=== PATIENT | female | born 1975 | race American Indian/Alaskan Native ===

== ENCOUNTER 2016-05-29 19:13 | Emergency (ER) | payer MEDICAID ==
[2016-05-29 19:28] VITALS: BMI 60.5
--- NOTE | 2016-05-29 19:29 | ED PDOC ---
Arrival/HPI - General Time Seen by Provider: 05/29/16 19:24 Historian: Patient - History of Present Illness Narrative History of Present Illness (Text): 05/29/16 19:38 40yo female in ED for left foot pain. states she missed a step and twisted her foot 6hours ago. States she ambulates with pain. Took 800mg of Ibuprofen 4hrs ago, with some relieve. denies any other complaint. Past Medical History - Provider Review Nursing Documentation Reviewed: Yes - Infectious Disease Hx of Infectious Diseases: None - Tetanus Immunization Tetanus Immunization: Unknown - Psychiatric Hx Depression: No Hx Emotional Abuse: No Hx Physical Abuse: No Hx Substance Use: No - Anesthesia Hx Anesthesia: No Hx Anesthesia Reactions: No Hx Malignant Hyperthermia: No - Suicidal Assessment Feels Threatened In Home Enviroment: No Family/Social History - Physician Review Nursing Documentation Reviewed: Yes Family/Social History: Unknown Family HX Smoking Status: Never Smoked Hx Alcohol Use: No Hx Substance Use: No Hx Substance Use Treatment: No Allergies/Home Meds Allergies/Adverse Reactions: Allergies No Known Allergies Allergy (Verified 02/13/13 14:05) Review of Systems - Physician Review All systems were reviewed & negative as marked: Yes - Review of Systems Constitutional: Normal Eyes: Normal ENT: Normal Respiratory: Normal Cardiovascular: Normal Gastrointestinal: Normal Genitourinary Female: Normal Musculoskeletal: Arthralgias (Left foot) Skin: Normal Neurological: Normal Endocrine: Normal Hemo/Lymphatic: Normal Psychiatric: Normal Physical Exam Vital Signs Reviewed: Yes Vital Signs Temp Pulse Resp BP Pulse Ox 05/29/16 19:13 98.6 F 78 18 132/68 98 Temperature: Afebrile Blood Pressure: Normal Pulse: Regular Respiratory Rate: Normal Appearance: Positive for: Well-Appearing, Non-Toxic, Comfortable Pain Distress: None Mental Status: Positive for: Alert and Oriented X 3 - Systems Exam Head: Present: Atraumatic, Normocephalic Pupils: Present: PERRL Extroacular Muscles: Present: EOMI Conjunctiva: Present: Normal Mouth: Present: Moist Mucous Membranes Neck: Present: Normal Range of Motion Respiratory/Chest: Present: Clear to Auscultation, Good Air Exchange. No: Respiratory Distress, Accessory Muscle Use Cardiovascular: Present: Regular Rate and Rhythm, Normal S1, S2. No: Murmurs Abdomen: Present: Normal Bowel Sounds. No: Tenderness, Distention, Peritoneal Signs Back: Present: Normal Inspection Upper Extremity: Present: Normal Inspection. No: Cyanosis, Edema Lower Extremity: Present: NORMAL PULSES, Normal ROM, Tenderness (Over left lateral foot), Swelling (Left lateral foot), Neurovascularly Intact. No: Edema , CALF TENDERNESS, Cyanosis, Erythema, Deformity, Temperature Abnormalties Neurological: Present: GCS=15, CN II-XII Intact, Speech Normal Skin: Present: Warm, Dry, Normal Color. No: Rashes Psychiatric: Present: Alert, Oriented x 3, Normal Insight, Normal Concentration Medical Decision Making ED Course and Treatment: 05/29/16 20:19 Left foot xray - No acute fracture\ Hermelindo wrap applied. Ortho shoe given. crutches given Advised to RICE foot Referred to a [facility]ist TRT ED for any new or worsening symptoms - RAD Interpretation Radiology Orders: 05/29/16 19:28 FOOT LEFT 3 VIEWS ROUTINE [RAD] Stat Disposition/Present on Arrival - Present on Arrival Any Indicators Present on Arrival: No History of DVT/PE: No History of Uncontrolled Diabetes: No Urinary Catheter: No History Surgical Site Infection Following: None - Disposition Have Diagnosis and Disposition been Completed?: Yes Diagnosis: Foot sprain Disposition: HOME/ ROUTINE Disposition Time: 20:20 Patient Plan: Discharge Patient Problems: Current Active Problems Problem Status Diagnosed Foot sprain Acute Condition: STABLE Discharge Instructions (ExitCare): Foot Sprain (ED) Additional Instructions: Rest, ice, compress and elevate foot Follow up with a [facility] Specialist Return to ED for any new or worsening symptoms Referrals: Gibson Broussard MD [Primary Care Provider] - Follow up with primary Forest Yeager DPM [Staff Provider] - Follow up with primary Forms: WORK NOTE
[2016-05-29 19:48] VITALS: RESP 18; TEMP 98.6; O2SAT 98
[2016-05-29 20:55] VITALS: BP 128/76; PULSE 69
--- NOTE | 2016-05-30 09:23 | RAD ---
PROCEDURE: Left Foot Radiographs. HISTORY: foot pain COMPARISON: None. FINDINGS: BONES: Normal. No fracture. JOINTS: Normal. SOFT TISSUES: Normal. OTHER FINDINGS: None. IMPRESSION: Normal left foot radiographs.
== END 2016-05-29 20:45 | disposition home or self-care (01) ==
LOC: ED 19:13
DX: S93.602A Unspecified sprain of left foot, initial encounter (principal); X50.0XXA Overexertion from strenuous movement or load, initial encounter; Y93.89 Activity, other specified; Y92.9 Unspecified place or not applicable

== ENCOUNTER 2016-07-05 13:31 | Emergency (ER) | payer MEDICAID ==
[2016-07-05 13:32] VITALS: BMI 60.5
[2016-07-05 13:38] VITALS: BP 108/60; PULSE 53; RESP 16; TEMP 98.7; O2SAT 100
--- NOTE | 2016-07-05 14:13 | ED PDOC ---
Arrival/HPI - General Chief Complaint: Abdominal Pain Time Seen by Provider: 07/05/16 14:10 Historian: Patient - History of Present Illness Narrative History of Present Illness (Text): 07/05/16 14:11 40 year old female with a history that includes hysterectomy presents to the emergency department with lower abdominal pain described as cramping for the past two days. Patient also reports some white vaginal discharge, last sexually active 1 week ago. Denies fever, diarrhea/constipation, nausea, vomiting, or dysuria. 07/05/16 14:44 Time/Duration: < week Symptom Onset: Gradual Symptom Course: Unchanged Modifying Factors (Text): None Associated Symptoms (Text): None Past Medical History - Provider Review Nursing Documentation Reviewed: Yes - Infectious Disease Hx of Infectious Diseases: None - Tetanus Immunization Tetanus Immunization: Unknown - Psychiatric Hx Psychophysiologic Disorder: No Hx Depression: No Hx Emotional Abuse: No Hx Physical Abuse: No Hx Substance Use: No - Surgical History Hx Hysterectomy: Yes - Anesthesia Hx Anesthesia: No Hx Anesthesia Reactions: No Hx Malignant Hyperthermia: No - Suicidal Assessment Feels Threatened In Home Enviroment: No Family/Social History - Physician Review Nursing Documentation Reviewed: Yes Family/Social History: Unknown Family HX Smoking Status: Never Smoked Hx Alcohol Use: No Hx Substance Use: No Hx Substance Use Treatment: No Allergies/Home Meds Allergies/Adverse Reactions: Allergies No Known Allergies Allergy (Verified 07/05/16 13:33) Review of Systems - Review of Systems Constitutional: absent: Fevers Eyes: absent: Vision Changes ENT: absent: Hearing Changes Respiratory: absent: SOB, Cough Cardiovascular: absent: Chest Pain Gastrointestinal: absent: Abdominal Pain, Constipation, Diarrhea, Nausea, Vomiting, Appetite Changes Genitourinary Female: Vaginal Discharge (with pelvic cramping). absent: Dysuria , Hematuria Musculoskeletal: absent: Back Pain Skin: absent: Rash Neurological: absent: Headache, Dizziness Endocrine: absent: Diaphoresis Psychiatric: absent: Depression Physical Exam Vital Signs Reviewed: Yes Vital Signs Temp Pulse Resp BP Pulse Ox 07/05/16 13:37 98.7 F 53 L 16 108/60 100 Temperature: Afebrile Blood Pressure: Normal Pulse: Bradycardic Respiratory Rate: Normal Appearance: Positive for: Well-Appearing, Non-Toxic, Comfortable Pain Distress: None Mental Status: Positive for: Alert and Oriented X 3 - Systems Exam Head: Present: Atraumatic, Normocephalic Pupils: Present: PERRL Extroacular Muscles: Present: EOMI Neck: Present: Normal Range of Motion Respiratory/Chest: Present: Clear to Auscultation Cardiovascular: Present: Regular Rate and Rhythm, Normal S1, S2. No: Murmurs Abdomen: No: Tenderness, Distention, Rebound, Guarding Genitourinary/Pelvic Exam: Present: Normal External Genitalia, Vaginal Discharge (white cottage cheese like), Cervical os Closed, Other (exam chaperoned by ED scribe Dania Kohler). No: Vaginal Bleeding, Adenexal Tenderness, Adenexal Mass, Cervical Motion Tendernes, Odor Back: Present: Normal Inspection. No: CVA Tenderness Upper Extremity: Present: Normal Inspection Lower Extremity: Present: Normal Inspection Neurological: Present: GCS=15, Speech Normal Skin: No: Rashes Psychiatric: Present: Alert, Oriented x 3 Medical Decision Making ED Course and Treatment: Impression: 40 year old female with a history that includes hysterectomy presents to the emergency department with lower abdominal pain described as cramping for the past two days. She is well appearing with normal vitals and soft NT/ND abdomen. PE consistent with vaginal candidiasis. r/o uti Plan: -- GC/Chlamydia -- UA -- Reassess and disposition Prior Visits: Notes and results from previous visits were reviewed. Patient last seen in the ED on Progress Notes: 07/05/16 14:36 UA negative. Presentation consistent with vaginal candidiasis. Will dc with monistat. Exam not consistent with gonorrhea, chlamydia or bacterial vaginosis , ot PID, but cultures sent. Patient aware. - Lab Interpretations Lab Results: Lab Results 07/05/16 14:30: Urine Color Yellow, Urine Appearance Clear, Urine pH 6.5, Ur Specific [place] 1.020, Urine Protein Negative, Urine Glucose (UA) Negative, Urine Ketones Negative, Urine Blood Negative, Urine Nitrate Negative, Urine Bilirubin Negative, Urine Urobilinogen 1.0 H, Ur Leukocyte Esterase Negative - Scribe Statement The provider has reviewed the documentation as recorded by the Leslie Aguirre Provider Scribe Attestation: All medical record entries made by the Jovitaibmiles were at my direction and personally dictated by me. I have reviewed the chart and agree that the record accurately reflects my personal performance of the history, physical exam, medical decision making, and the department course for this patient. I have also personally directed, reviewed, and agree with the discharge instructions and disposition. Disposition/Present on Arrival - Present on Arrival Any Indicators Present on Arrival: No History of DVT/PE: No History of Uncontrolled Diabetes: No Urinary Catheter: No History of Decub. Ulcer: No History Surgical Site Infection Following: None - Disposition Have Diagnosis and Disposition been Completed?: Yes Diagnosis: Vaginal candidiasis Disposition: HOME/ ROUTINE Disposition Time: 14:45 Patient Plan: Discharge Condition: GOOD Discharge Instructions (ExitCare): Vulvovaginal Candidiasis (ED) Additional Instructions: Follow up with PMD within 2 days. Get routine gynecologic screenings including but not limited to pap smears. Return to ED if condition worsens. Your culture results will be ready in 2 days and you will be called with any abnormality. Prescriptions: Miconazole Nitrate [Monistat 3] 1 each VG HS #1 kit Referrals: Gibson Broussard MD [Primary Care Provider] - Follow up with primary
[2016-07-05 14:41] LABS: PH,URINE 6.5 (4.7-8.0); URINE BILIRUBIN NEGATIVE (NEGATIVE); URINE BLOOD NEGATIVE (NEGATIVE); URINE GLUCOSE (UA) NEGATIVE (NEGATIVE); URINE KETONE NEGATIVE (NEGATIVE); URINE LEUKOCYTE ESTERASE NEGATIVE Leu/uL (NEGATIVE); URINE PROTEIN NEGATIVE mg/dL (<30 mg/dL)
[2016-07-05 14:42] LABS: URINE APPEARANCE CLEAR (CLEAR); URINE COLOR YELLOW (YELLOW)
== END 2016-07-05 15:05 | disposition home or self-care (01) ==
LOC: ED 13:31
DX: B37.3 Candidiasis of vulva and vagina (principal)

== ENCOUNTER 2016-08-21 09:13 | Emergency (ER) | payer OTHER, MEDICAID ==
[2016-08-21 09:14] VITALS: BMI 60.5
[2016-08-21 09:20] VITALS: BP 108/69; PULSE 79; RESP 16; TEMP 98.8; O2SAT 98
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
--- NOTE | 2016-08-21 10:59 | RAD ---
PROCEDURE: Cervical Spine Radiographs. HISTORY: Pain. COMPARISON: None. FINDINGS: BONES: There is straightening of the cervical spine with loss of normal cervical lordosis. There is mild degenerative retrolisthesis of C5 on C6. Vertebral height is normal. There is no acute fracture. The craniocervical junction is normal. The atlantoaxial joint is normal. DISC SPACES: There is mild multilevel degenerative disc disease from C4-5 through C6-7, worse at C5-6. SOFT TISSUES: Normal. No prevertebral soft tissue swelling. OTHER FINDINGS: None. IMPRESSION: Mild multilevel degenerative disc disease, worse at C5-6. Straightening of the cervical spine may be positional or related to muscle spasm.
== END 2016-08-21 10:51 | disposition home or self-care (01) ==
LOC: ED 09:13
DX: S16.1XXA Strain of muscle, fascia and tendon at neck level, initial encounter (principal); V49.49XA Driver injured in collision with other motor vehicles in traffic accident, initial encounter; Y92.410 Unspecified street and highway as the place of occurrence of the external cause
CPT/HCPCS: 72050; 81025; 96372; 99284; J1885

== ENCOUNTER 2017-01-26 11:39 | Emergency (ER) | payer MEDICAID, OTHER ==
[2017-01-26 11:39] VITALS: BMI 60.5
--- NOTE | 2017-01-26 11:48 | ED PDOC ---
Arrival/HPI - General Chief Complaint: Abdominal Pain Time Seen by Provider: 01/26/17 11:47 Historian: Patient - History of Present Illness Narrative History of Present Illness (Text): 01/26/17 11:48 This 41 yo female presents to this ED c/o vaginal discharge and suprapubic pain x 3 days. Patient denies nausea, vomiting, diarrhea, rectal bleeding, urinary symptoms, sob, cp, rash, dizziness, or abnormal gait. Time/Duration: Other (3 days) Context: Home Past Medical History - Provider Review Nursing Documentation Reviewed: Yes - Infectious Disease Hx of Infectious Diseases: None - Tetanus Immunization Tetanus Immunization: Unknown - Psychiatric Hx Psychophysiologic Disorder: No Hx Depression: No Hx Emotional Abuse: No Hx Physical Abuse: No Hx Substance Use: No - Surgical History Hx Hysterectomy: Yes - Anesthesia Hx Anesthesia: No Hx Anesthesia Reactions: No Hx Malignant Hyperthermia: No - Suicidal Assessment Feels Threatened In Home Enviroment: No Family/Social History - Physician Review Nursing Documentation Reviewed: Yes Family/Social History: Other (noncontributory) Smoking Status: Never Smoked Hx Alcohol Use: No Hx Substance Use: No Hx Substance Use Treatment: No Allergies/Home Meds Allergies/Adverse Reactions: Allergies No Known Allergies Allergy (Verified 01/26/17 11:45) Review of Systems - Review of Systems Constitutional: Normal. absent: Fatigue, Weight Change, Fevers Eyes: Normal ENT: Normal Respiratory: Normal Cardiovascular: Normal Gastrointestinal: Normal Genitourinary Female: Vaginal Discharge, Other (vaginal itching) Musculoskeletal: Normal Skin: Normal Neurological: Normal Endocrine: Normal Hemo/Lymphatic: Normal Psychiatric: Normal Physical Exam Vital Signs Temp Pulse Resp BP Pulse Ox 01/26/17 12:01 98.9 F 67 18 108/72 98 01/26/17 11:42 98.9 F 67 18 108/72 99 Temperature: Afebrile Blood Pressure: Normal Pulse: Regular Respiratory Rate: Normal Appearance: Positive for: Well-Appearing, Non-Toxic, Comfortable Pain Distress: None Mental Status: Positive for: Alert and Oriented X 3 - Systems Exam Head: Present: Atraumatic, Normocephalic Pupils: Present: PERRL Extroacular Muscles: Present: EOMI Conjunctiva: Present: Normal Mouth: Present: Moist Mucous Membranes Neck: Present: Normal Range of Motion Respiratory/Chest: Present: Clear to Auscultation, Good Air Exchange. No: Respiratory Distress, Accessory Muscle Use, Wheezes, Retracting, Rhonchi Cardiovascular: Present: Regular Rate and Rhythm, Normal S1, S2. No: Murmurs Abdomen: Present: Normal Bowel Sounds. No: Tenderness, Distention, Peritoneal Signs, Rebound Genitourinary/Pelvic Exam: Present: Normal External Genitalia, Vaginal Discharge (cottage cheese like discharge), Odor (fishy odor). No: Vaginal Bleeding, Vaginal Lesions, Adenexal Tenderness Upper Extremity: Present: Normal Inspection, Normal ROM, NORMAL PULSES, Neurovascularly Intact, Capillary Refill < 2s. No: Cyanosis, Edema Lower Extremity: Present: Normal Inspection, Normal ROM, Neurovascularly Intact , Capillary Refill < 2 s. No: Edema, CALF TENDERNESS Neurological: Present: GCS=15, CN II-XII Intact, Speech Normal, Motor Func Grossly Intact, Normal Sensory Function, Normal Cerebellar Funct, Gait Normal Skin: Present: Warm, Dry, Normal Color. No: Rashes Psychiatric: Present: Alert, Oriented x 3, Normal Insight Medical Decision Making ED Course and Treatment: 01/28/17 22:41 Re-evaluation. Patient feels better. Discussed results and plan with patient who expresses understanding. All questions answered and there is agreement with the plan to discharge home with instructions. Patient stable for discharge. Return if symptoms persist or worsen. Patient was recommended to f/u std test and urine culture result with her pmd in 3-5 days. Re-evaluation Time: 12:30 - Lab Interpretations Lab Results: Lab Results 01/26/17 12:35: C.trachomatis RNA (TMA) Not detected, N.gonorrhoeae RNA (TMA) Not detected 01/26/17 12:05: Urine Color Yellow, Urine Appearance Clear, Urine pH 8.0, Ur Specific [place] 1.015, Urine Protein Negative, Urine Glucose (UA) Negative, Urine Ketones Negative, Urine Blood Negative, Urine Nitrate Negative, Urine Bilirubin Negative, Urine Urobilinogen 0.2, Ur Leukocyte Esterase Negative I have reviewed the lab results: Yes Interpretation: No clinic. lab abnormalty - Medication Orders Current Medication Orders: Discontinued Medications Fluconazole (Diflucan) 200 mg PO STAT STA PRN Reason: Protocol Stop: 01/26/17 12:04 Last Admin: 01/26/17 12:37 Dose: 200 mg Metronidazole (Flagyl) 2,000 mg PO STAT STA PRN Reason: Protocol Stop: 01/26/17 12:05 Last Admin: 01/26/17 12:20 Dose: 2,000 mg Disposition/Present on Arrival - Present on Arrival Any Indicators Present on Arrival: No History of DVT/PE: No History of Uncontrolled Diabetes: No Urinary Catheter: No History of Decub. Ulcer: No History Surgical Site Infection Following: None - Disposition Have Diagnosis and Disposition been Completed?: Yes Diagnosis: Vulvovaginal candidiasis, Vaginal discharge Disposition: HOME/ ROUTINE Disposition Time: 12:34 Patient Plan: Discharge Condition: GOOD Discharge Instructions (ExitCare): Vulvovaginal Candidiasis (ED) Additional Instructions: Call private doctor for follow up visit in 1-2 days. Follow up STD test with your doctor in 3-5 days. Take medication as instructed. Return to emergency if symptoms worsen. Prescriptions: Fluconazole [Diflucan] 150 mg PO DAILY PRN #1 tab PRN Reason: Itching / Pruritus Referrals: Gibson Broussard MD [Primary Care Provider] - Follow up with primary Forms: [employer] (Frisian)
[2017-01-26 11:53] VITALS: BP 108/72; PULSE 67; RESP 18; TEMP 98.9
[2017-01-26 12:01] VITALS: O2SAT 98
[2017-01-26 12:12] LABS: URINE BILIRUBIN NEGATIVE (NEGATIVE); URINE BLOOD NEGATIVE (NEGATIVE); URINE GLUCOSE (UA) NEGATIVE (NEGATIVE); URINE KETONE NEGATIVE (NEGATIVE); URINE LEUKOCYTE ESTERASE NEGATIVE Leu/uL (NEGATIVE); URINE PROTEIN NEGATIVE mg/dL (<30 mg/dL); URINE UROBILINOGEN 0.2 E.U./dL (<1 E.U./dL)
[2017-01-26 12:15] LABS: URINE APPEARANCE CLEAR (CLEAR); URINE COLOR YELLOW (YELLOW)
== END 2017-01-26 12:41 | disposition home or self-care (01) ==
LOC: ED 11:39
DX: B37.3 Candidiasis of vulva and vagina (principal); N89.8 Other specified noninflammatory disorders of vagina

== ENCOUNTER 2017-05-27 10:59 | Emergency (ER) | payer MEDICAID, OTHER ==
[2017-05-27 11:11] VITALS: RESP 18; TEMP 98.9; BMI 28.1
--- NOTE | 2017-05-27 11:51 | ED PDOC ---
Arrival/HPI - General Chief Complaint: Flu-like Symptoms Time Seen by Provider: 05/27/17 11:12 Historian: Patient - History of Present Illness Narrative History of Present Illness (Text): 05/27/17 11:48 A 41 year old female presents to the emergency department complaining of a dry cough and congestion for 1 week. Patient reports taking Robitussin, Mucinex and Motrin, with no relief. Patient notes increase sputum production at night. pt c/ o nasal congestion with sinus pressure. Patient denies any fever, chills, nausea , vomiting, abdominal pain, chest pain, shortness of breath or any other complaints. Time/Duration: 1 week Symptom Course: Unchanged Context: Home Past Medical History - Provider Review Nursing Documentation Reviewed: Yes - Travel History Have you recently traveled outside [place] w/in the past 3 mons?: No - Infectious Disease Hx of Infectious Diseases: None - Tetanus Immunization Tetanus Immunization: Unknown - Psychiatric Hx Psychophysiologic Disorder: No Hx Depression: No Hx Emotional Abuse: No Hx Physical Abuse: No Hx Substance Use: No - Surgical History Hx Hysterectomy: Yes - Anesthesia Hx Anesthesia: No Hx Anesthesia Reactions: No Hx Malignant Hyperthermia: No - Suicidal Assessment Feels Threatened In Home Enviroment: No Family/Social History - Physician Review Nursing Documentation Reviewed: Yes Family/Social History: No Known Family HX Smoking Status: Never Smoked Hx Alcohol Use: No Hx Substance Use: No Hx Substance Use Treatment: No Allergies/Home Meds Allergies/Adverse Reactions: Allergies No Known Allergies Allergy (Verified 01/26/17 11:45) Review of Systems - Physician Review All systems were reviewed & negative as marked: Yes - Review of Systems Constitutional: absent: Fatigue, Fevers, Night Sweats ENT: Sinus Congestion. absent: Sore Throat, Epistaxis Respiratory: Cough. absent: SOB, Sputum Cardiovascular: absent: Chest Pain Gastrointestinal: absent: Abdominal Pain, Nausea, Vomiting Genitourinary Female: absent: Dysuria Musculoskeletal: absent: Arthralgias Skin: absent: Rash, Pruritis Neurological: absent: Headache, Dizziness Psychiatric: absent: Anxiety, Depression Physical Exam Vital Signs Reviewed: Yes Vital Signs Temp Pulse Resp BP Pulse Ox 05/27/17 11:09 98.9 F 72 18 118/74 99 Temperature: Afebrile Blood Pressure: Normal Pulse: Regular Respiratory Rate: Normal Appearance: Positive for: Well-Appearing, Non-Toxic, Comfortable Pain Distress: None Mental Status: Positive for: Alert and Oriented X 3 - Systems Exam Head: Present: Atraumatic, Tenderness (right maxillary sinus tenderness) Extroacular Muscles: Present: EOMI Conjunctiva: Present: Normal Ears: Present: Normal, NORMAL TM, Normal Canal. No: Erythema, TM Perf Mouth: Present: Moist Mucous Membranes. No: Dry, Drooling, Trismus Pharnyx: Present: Normal. No: ERYTHEMA, EXUDATE, TONSILS ENLARGED Nose (External): Present: Atraumatic Nose (Internal): Present: Other (congestion) Neck: Present: Normal Range of Motion Respiratory/Chest: Present: Clear to Auscultation, Good Air Exchange. No: Respiratory Distress, Accessory Muscle Use Cardiovascular: Present: Regular Rate and Rhythm, Normal S1, S2. No: Murmurs Abdomen: Present: Normal Bowel Sounds. No: Tenderness, Distention, Peritoneal Signs Upper Extremity: Present: Normal ROM Lower Extremity: Present: Normal ROM Neurological: Present: GCS=15, Speech Normal Skin: Present: Warm, Dry, Normal Color. No: Rashes Psychiatric: Present: Alert, Oriented x 3 Medical Decision Making ED Course and Treatment: 05/27/17 12:15 41yr old female with URI symptoms x 1 week. pt with cough x 1 week also with maxillary sinus tenderness. cxr; wnl pt with symptoms of sinusitis; will start on augmentin Po. pt advised to f/u with pmd and ent specialist. advised to take medications as prescribed and return if symptoms worsen,persist or if new symptoms develop. Patient verbalizes understanding of discharge instructions and need for immediate followup. all aspects of this case were discussed the attending of record. impression; sinusitis Motrin every 6 hours as needed for pain/fever reduction Increase fluids Augmentin twice daily x10 days claritin once daily flonase; 2 sprays each nostril once daily. Follow up primary care physician within the next 2 days Follow up with the ENT specialist within the next 2 days. Return if symptoms worsen persist or if the symptoms develop - RAD Interpretation Radiology Orders: 05/27/17 11:44 CHEST TWO VIEWS (PA/LAT) [RAD] Stat - Scribe Statement The provider has reviewed the documentation as recorded by the Jovitaibmiles Flores Provider Scribe Attestation: All medical record entries made by the Scribe were at my direction and personally dictated by me. I have reviewed the chart and agree that the record accurately reflects my personal performance of the history, physical exam, medical decision making, and the department course for this patient. I have also personally directed, reviewed, and agree with the discharge instructions and disposition. Disposition/Present on Arrival - Present on Arrival Any Indicators Present on Arrival: No History of DVT/PE: No History of Uncontrolled Diabetes: No Urinary Catheter: No History of Decub. Ulcer: No History Surgical Site Infection Following: None - Disposition Have Diagnosis and Disposition been Completed?: Yes Diagnosis: Sinusitis Disposition: HOME/ ROUTINE Disposition Time: 13:23 Patient Plan: Discharge Condition: GOOD Discharge Instructions (ExitCare): Sinusitis, Adult (DC) Additional Instructions: Motrin every 6 hours as needed for pain/fever reduction Increase fluids Augmentin twice daily x10 days claritin once daily flonase; 2 sprays each nostril once daily. Follow up primary care physician within the next 2 days Follow up with the ENT specialist within the next 2 days. Return if symptoms worsen persist or if the symptoms develop Prescriptions: Amoxicillin/Clavulanate [Augmentin 875 MG-125 MG] 1 tab PO BID #20 tab Fluticasone Nasal [Flonase] 2 spr NS DAILY #1 spr Ibuprofen [Motrin] 600 mg PO Q6H PRN #20 tab PRN Reason: pain/fever reduction Loratadine [Claritin] 10 mg PO DAILY #30 tab Referrals: Santo Villegas DO [Staff Provider] - Follow up with primary Humberto Barajas DO [Staff Provider] - Follow up with primary Forms: [employer] ([place]), WORK NOTE
--- NOTE | 2017-05-27 12:39 | RAD ---
HISTORY: cough COMPARISON: No prior. TECHNIQUE: Chest PA and lateral FINDINGS: LUNGS: No active pulmonary disease. PLEURA: No significant pleural effusion identified. No pneumothorax apparent. CARDIOVASCULAR: Normal. OSSEOUS STRUCTURES: No significant abnormalities. VISUALIZED UPPER ABDOMEN: Normal. OTHER FINDINGS: None. IMPRESSION: No active disease.
[2017-05-27] MEDS ORDERED: Amoxicillin-Clav 875-125 mg Tab PO STA (13:22)
[2017-05-27 13:40] VITALS: BP 120/73; PULSE 75; O2SAT 100
== END 2017-05-27 13:39 | disposition home or self-care (01) ==
LOC: ED 10:59
DX: J32.9 Chronic sinusitis, unspecified (principal)

== ENCOUNTER 2017-07-31 09:50 | Emergency (ER) | payer OTHER ==
[2017-07-31 10:08] VITALS: RESP 18; TEMP 98.3; BMI 28.7
--- NOTE | 2017-07-31 10:25 | ED PDOC ---
Arrival/HPI - General Chief Complaint: Abnormal Skin Integrity Time Seen by Provider: 07/31/17 10:23 Historian: Patient - History of Present Illness Narrative History of Present Illness (Text): 07/31/17 10:23 This 41 yo female presents to this ED c/o b/l goinn rash x 3 days. Patient stated symptoms started a few days after using [employer] for hair removal. Patient denies rash is painful or pruritic. Time/Duration: Other (see hpi) Context: Home Past Medical History - Provider Review Nursing Documentation Reviewed: Yes - Infectious Disease Hx of Infectious Diseases: None - Tetanus Immunization Tetanus Immunization: Unknown - Psychiatric Hx Psychophysiologic Disorder: No Hx Depression: No Hx Emotional Abuse: No Hx Physical Abuse: No Hx Substance Use: No - Surgical History Hx Hysterectomy: Yes - Anesthesia Hx Anesthesia: No Hx Anesthesia Reactions: No Hx Malignant Hyperthermia: No - Suicidal Assessment Feels Threatened In Home Enviroment: No Family/Social History - Physician Review Nursing Documentation Reviewed: Yes Family/Social History: Other (noncontributory) Smoking Status: Never Smoked Hx Alcohol Use: No Hx Substance Use: No Hx Substance Use Treatment: No Allergies/Home Meds Allergies/Adverse Reactions: Allergies No Known Allergies Allergy (Verified 07/31/17 10:07) Review of Systems - Review of Systems Constitutional: Normal. absent: Fatigue, Weight Change, Fevers Eyes: Normal ENT: Normal Respiratory: Normal Cardiovascular: Normal Gastrointestinal: Normal Genitourinary Female: Normal. absent: Dysuria, Frequency, Hematuria, Vaginal Bleeding, Vaginal Discharge Musculoskeletal: Normal Skin: Rash. absent: Pruritis Neurological: Normal Endocrine: Normal Hemo/Lymphatic: Normal Psychiatric: Normal Physical Exam Vital Signs Temp Pulse Resp BP Pulse Ox 07/31/17 10:08 98.3 F 63 18 109/77 100 Temperature: Afebrile Blood Pressure: Normal Pulse: Regular Respiratory Rate: Normal Appearance: Positive for: Well-Appearing, Non-Toxic, Comfortable Pain Distress: None Mental Status: Positive for: Alert and Oriented X 3 - Systems Exam Head: Present: Atraumatic, Normocephalic Pupils: Present: PERRL Extroacular Muscles: Present: EOMI Conjunctiva: Present: Normal Mouth: Present: Moist Mucous Membranes Neck: Present: Normal Range of Motion Respiratory/Chest: Present: Clear to Auscultation, Good Air Exchange. No: Respiratory Distress, Accessory Muscle Use Cardiovascular: Present: Regular Rate and Rhythm, Normal S1, S2. No: Murmurs Abdomen: No: Tenderness, Distention, Peritoneal Signs Back: Present: Normal Inspection Upper Extremity: Present: Normal Inspection. No: Cyanosis, Edema Lower Extremity: Present: NORMAL PULSES, Normal ROM, Neurovascularly Intact, Capillary Refill < 2 s, Other (Janae). No: Edema, Susan's Sign, Erythema, Temperature Abnormalties Neurological: Present: GCS=15, CN II-XII Intact, Speech Normal, Motor Func Grossly Intact, Normal Sensory Function, Normal Cerebellar Funct, Gait Normal Skin: Present: Warm, Dry, Normal Color. No: Rashes Psychiatric: Present: Alert, Oriented x 3, Normal Insight, Normal Concentration Medical Decision Making ED Course and Treatment: 07/31/17 11:09 Re-evaluation. Patient feels better. Discussed results and plan with patient who expresses understanding. All questions answered and there is agreement with the plan to discharge home with instructions. Patient stable for discharge. Return if symptoms persist or worsen. Re-evaluation Time: 11:19 Reassessment Condition: Re-examined, Unchanged Disposition/Present on Arrival - Present on Arrival Any Indicators Present on Arrival: No History of DVT/PE: No History of Uncontrolled Diabetes: No Urinary Catheter: No History of Decub. Ulcer: No History Surgical Site Infection Following: None - Disposition Have Diagnosis and Disposition been Completed?: Yes Diagnosis: Rash and nonspecific skin eruption Disposition: HOME/ ROUTINE Disposition Time: 11:10 Patient Plan: Discharge Patient Problems: Current Active Problems Problem Status Onset Rash and nonspecific skin eruption Acute Condition: GOOD Discharge Instructions (ExitCare): Skin Rash (DC) Additional Instructions: Call private doctor follow up in 1-2 days. Apply medication as instructed. Return to emergency if symptoms worsen. Prescriptions: Nystatin/Triamcinolone Acetoni [Mycolog II OINT] 1 applic TP BID #1 tube Referrals: Gibson Broussard MD [Family Provider] - Follow up with primary Forms: [employer] (Ind[place]ian), WORK NOTE
[2017-07-31 11:26] VITALS: BP 118/79; PULSE 68; O2SAT 99
== END 2017-07-31 11:26 | disposition home or self-care (01) ==
LOC: ED 09:50
DX: R21 Rash and other nonspecific skin eruption (principal)

== ENCOUNTER 2017-08-12 13:42 | Emergency (ER) | payer OTHER ==
[2017-08-12 13:46] VITALS: BMI 28.0
[2017-08-12 13:47] VITALS: RESP 18; O2SAT 100
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
[2017-08-12 17:20] VITALS: BP 120/82; PULSE 60; TEMP 98.5
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
== END 2017-08-12 17:18 | disposition home or self-care (01) ==
LOC: ED 13:42
DX: S06.0X0A Concussion without loss of consciousness, initial encounter (principal); V49.40XA Driver injured in collision with unspecified motor vehicles in traffic accident, initial encounter
CPT/HCPCS: 70450; 71111; 72125; 96372; 99285; J1885